=== PATIENT | female | born 1960 | race African-American/Black ===

== ENCOUNTER 2020-09-06 16:13 | Emergency (ER) | payer MEDICARE, SELFPAY ==
[2020-09-07 01:36] LABS: SARS-CoV-2 PCR by NAA Not Detected (NotDetected)
== END 2020-09-06 17:35 | disposition home or self-care (01) ==
LOC: MADERS 16:13
DX: J32.9 Chronic sinusitis, unspecified (principal); J02.9 Acute pharyngitis, unspecified; Z20.822 Contact with and (suspected) exposure to COVID-19; J44.9 Chronic obstructive pulmonary disease, unspecified; G43.909 Migraine, unspecified, not intractable, without status migrainosus; K21.9 Gastro-esophageal reflux disease without esophagitis; Z79.899 Other long term (current) drug therapy
CPT/HCPCS: 71046; 87635; U0003; U0005